=== PATIENT | male | born 1970 | race Caucasian/White ===

== ENCOUNTER 2017-03-06 19:00 | Inpatient (IN) | payer OTHER ==
[~2017-03-06] VITALS: Ht 182.9 cm; Wt 72.6 kg
--- NOTE | ~2017-03-06 | DS ---
Unit #: [id number] #: [id number] Patient: MARIAN KRUGER [id number] [facility] [address] [place] [address] [id number] I MR#: [id number] NAME: MARIAN KRUGER ROOM: P259 Age: 46 Sex: M Admission Date: 03/06/2017 : 1970 Discharge Date: 03/11/2017 Attending Physician: Clarissa Palencia M.D. Primary Care Physician: Eliel Winchester M.D. DISCHARGE SUMMARY IDENTIFYING DATA Mr. Kruger is a 46-year-old single white male, who is a resident of [place], [place], and is known to us from previous encounter, was brought to the hospital accompanied by his mother on a voluntary basis and with chief complaint of"I'm here to detox off heroin." DISCHARGE DIAGNOSES Psychiatric: Opioid dependence, moderate and acute withdrawals; methamphetamine abuse, moderate; cannabis abuse, moderate; opioid-induced mood disorder. Medical: None. Stressors: Mild psychosocial stressors. HISTORY OF PRESENT ILLNESS Please see initial psychiatric evaluation for details. PAST PSYCHIATRIC HISTORY Please see initial psychiatric evaluation for details. PAST MEDICAL HISTORY Please see initial psychiatric evaluation for details. HOSPITAL COURSE The patient was admitted to the adult chemical dependency and psychiatric unit at [facility] and was oriented to the hospital environment. Routine p.r.n. medications were initiated, and he was started on the opioid detox protocol and was closely monitored. He was taking the medications regularly and was tolerating them fairly well and was able to show a decent and therapeutic response with improvement in depression and anxiety, and was willing to continue treatment on an outpatient basis and as such, it was decided that he will be discharged home and will continue treatment on an outpatient basis. DISCHARGE MEDICATIONS None. DISCHARGE CONDITION Stable. PROGNOSIS Fair. Dictated by... Clarissa Palencia M.D. Unit #: [id number] #: [id number] Patient: MARIAN KRUGER IAA/modl TD: 03/11/2017 07:41 JOB #: [id number] DISCHARGE SUMMARY Page 1 of 1 X Clarissa Palencia MD X DISCHARGE SUMMARY
--- NOTE | ~2017-03-06 | PN ---
Unit #: [id number] #: [id number] Patient: MARIAN KRUGER [id number] [facility] [address] [place] [address] [id number] I MR#: [id number] NAME: MARIAN KRUGER ROOM: P259 Age: 46 Sex: M Admission Date: 03/06/2017 : 1970 Attending Physician: Clarissa Palencia M.D. Admitting Physician: Clarissa Palencia M.D. Primary Care Physician: Anabel Erazo PROGRESS NOTES DATE 03/09/2017 DISCUSSION Mr. Kruger is a 46-year-old white male with substance abuse and mood disorder who was seen today and chart was reviewed and case was discussed with the staff. He was seen to be anxious, withdrawn and seclusive to himself as he was laying in his bed but has been maintaining a positive attitude and states that he wants to do outpatient treatment program after completing his treatment here and that he also is interested in doing the Vivitrol injection. Meanwhile, he has been taking medications and tolerating them fairly well. MENTAL STATUS EXAMINATION Middle-aged white male who was casually dressed with fair personal hygiene and appears to be in no acute distress or discomfort. He was awake and alert with intact orientation. His mood was anxious with congruent affect. He denies any suicidal or homicidal ideation. His insight and judgement remains slightly impaired. TREATMENT PLAN 1. Will continue on his current medications and treatment protocol. Will monitor his response to the medications and make further adjustments as needed. 2. Will continue to follow up. Dictated by... Anabel Ochoa/reginald TD: 03/09/2017 21:27 JOB #: [id number] Unit #: [id number] #: [id number] Patient: MARIAN KRUGER PROGRESS NOTES Page 1 of 1 X Clarissa Palencia MD PROGRESS NOTE
--- NOTE | ~2017-03-06 | PN ---
Unit #: [id number] #: [id number] Patient: MARIAN KRUGER [id number] [facility] [address] [place] [address] [id number] I MR#: [id number] NAME: MARIAN KRUGER ROOM: P259 Age: 46 Sex: M Admission Date: 03/06/2017 : 1970 Attending Physician: Clarissa Palencia M.D. Admitting Physician: Clarissa Palencia M.D. Primary Care Physician: Anabel Erazo PROGRESS NOTES DATE OF SERVICE 03/06/2017 DISCUSSION Mr. Kruger is a 46-year-old, white male who was seen today and chart was reviewed and case was discussed with the staff. He has been anxious, withdrawn and rather seclusive to himself. Meanwhile, he has been cooperative with the treatment recommendations. He has been taking the medication and tolerating them fairly well with no reported side effects. MENTAL STATUS EXAM Middle-aged white male who was casually dressed with fair personal hygiene, appears to be in no acute distress or discomfort. He was awake and alert on interaction with intact orientation. His mood was anxious with congruent affect. He denies any suicidal or homicidal ideation. His insight and judgement remains slightly impaired. TREATMENT PLAN 1. We will continue him on his current medications and treatment protocol. We will monitor his response to the medication and make further adjustments as needed. 2. We will continue to follow up. Dictated by... Anabel Ochoa/lyly TD: 03/09/2017 03:34 JOB #: [id number] [facility] PROGRESS NOTES Page 1 of 1 X Clarissa Palencia MD PROGRESS NOTE
--- NOTE | ~2017-03-06 | PN ---
Unit #: [id number] #: [id number] Patient: MARIAN KRUGER [id number] [facility] [address] [place] [address] [id number] I MR#: [id number] NAME: MARIAN KRUGER ROOM: P259 Age: 46 Sex: M Admission Date: 03/06/2017 : 1970 Attending Physician: Clarissa Palencia M.D. Admitting Physician: Clarissa Palencia M.D. Primary Care Physician: Anabel Erazo PROGRESS NOTES DATE 03/10/2017 DISCUSSION Mr. Kruger is a 46-year-old white male who was seen today and chart was reviewed and case was discussed with the staff. He has been anxious, withdrawn and rather seclusive to himself with persistent depressive symptoms. Meanwhile, he has been cooperative with treatment recommendations and has been taking medications and tolerating them fairly well with no reported side effects. MENTAL STATUS EXAMINATION Middle-aged white male who was casually dressed with fair personal hygiene and appears to be in no acute distress or discomfort. He was awake and alert with intact orientation. His mood was anxious with congruent affect. His speech is slow and goal-directed. He denies any suicidal or homicidal ideation. His insight and judgement remains slightly impaired. TREATMENT PLAN 1. Will continue him on his current medications and treatment protocol and will monitor his response to the medications and make further adjustments as needed. 2. Will continue to follow up. Dictated by... Anabel Ochoa/reginald TD: 03/10/2017 18:53 JOB #: [id number] Unit #: [id number] #: [id number] Patient: MARIAN KRUGER PROGRESS NOTES Page 1 of 1 X Clarissa Palencia MD PROGRESS NOTE
--- NOTE | ~2017-03-06 | CO ---
Unit #: [id number] #: [id number] Patient: MARIAN MONTEZ [id number] [facility] [address] [place] [address] [id number] I MR#: [id number] NAME: MARIAN MONTEZ. ROOM: P259 Age: 46 Sex: M Admission Date: 03/06/2017 : 1970 Attending Physician: Clarissa Palencia M.D. Primary Care Physician: Eliel Winchester M.D. Consultation Date: 03/07/2017 CONSULTATION REPORT ORDERING PROVIDER Dr. Palencia. REASON FOR CONSULT Scabs all over body. SUBJECTIVE The patient does not know how multiple scabs got all over his body, but he does have them on his bilateral arms and chest and his upper legs. He does admit to methamphetamine use on a regular basis. He denies sleeping outside and denies any exposure to vermin. OBJECTIVE SKIN: The patient has multiple lesions on his arms and chest, most of them are closed wounds, but he does have a few that are open and draining serosanguineous fluid. None of them appears to be infected. VITAL SIGNS: His vital signs are stable. ASSESSMENT Multiple scabs on body. PLAN I do think that these are related fully to methamphetamine use and the patient picking while he is high. There are no scabs noted on his back or buttocks or any areas that he can reach easily. None of them appeared to be infected; however, we will use some topical mupirocin ointment and cover the open wounds. We will allow the closed wounds to heal. Dictated by... King Eubanks/candy TD: 03/07/2017 17:01 JOB #: [id number] Unit #: [id number] #: [id number] Patient: MARIAN MONTEZ CONSULTATION REPORT Page 1 of 1 X DELORES KUMAR APRN CONSULTATION REPORT
--- NOTE | ~2017-03-06 | PA ---
Unit #: [id number] #: [id number] Patient: MARIAN KRUGER [id number] [facility] [address] [place] [address] [id number] I MR#: [id number] NAME: MARIAN KRUGER ROOM: P259 Age: 46 Sex: M Admission Date: 03/06/2017 : 1970 Date of Assessment: 03/07/2017 Attending Physician: Clarissa Palencia M.D. Admitting Physician: Clarissa Palencia M.D. Primary Care Physician: Eliel Winchester M.D. PSYCHIATRIC ASSESSMENT DATE OF SERVICE 03/07/2017. IDENTIFYING DATA Mr. Kruger is a 46-year-old single white male, who is a resident of [place], [place], and is known to us from previous encounter and was brought to the hospital accompanied by his mother on a voluntary basis. CHIEF COMPLAINT "I'm here to detox from heroin." HISTORY OF PRESENT ILLNESS Mr. Kruger is a 46-year-old white male, who presents to the hospital stating that he wants to detox from opioids, particularly heroin and had a COWS of 20 indicating significant withdrawals from opioids and reports that last use yesterday morning, "I was clean for 6 months with one slip up and overdose. In the last week, I began using again. I'm using 50 to 100 dollars a day via IV. I tried to stop and not use and I did a little bit yesterday morning and withdrawals are really bad and I have joint aches and discomfort and unable to sit down, runny nose, chills, cold, hotness, and stomach cramps and I'm anxious." His mother added by stating, "he has been clean, but then this past week he has relapsed and I drug tested him last night and he was positive for heroin, benzos, amphetamines, and marijuana, but he is telling he is only using heroin. The last 24 hours, he has been trying to detox, but with his mood and bipolar he is unbearable. He is not on his medication. He needs help." The patient does report increasing depression, anxiety, agitation, irritability, impulsivity, and has history of suicide attempts in the past and reports overdose on Seroquel and Xanax about 4 years ago and reports intentional overdose of heroin in the past and one occasional dose of heroin and Xanax and as such, was seen to be a significant danger to himself and recommendation for inpatient level of care for safety and stabilization was made and the patient was stepped up to the inpatient unit. SUBSTANCE ABUSE HISTORY The patient reports extensive history of substance abuse and dependence including alcohol, cannabis, opioids, amphetamines, and benzodiazepines; currently, IV heroin has been his drug of choice. PAST PSYCHIATRIC HISTORY The patient has had a history of chemical dependency treatment at [facility], at [facility], at [facility], and [facility], and has not been able to achieve any long-term sobriety. Unit #: [id number] #: [id number] Patient: MARIAN KRUGER Review of the medical records indicate that currently he is not active in any treatment program, is not seeing a psychiatrist, and is not taking any psychotropic medications. PAST MEDICAL HISTORY Hepatitis C. ALLERGIES No known medication allergies. PERSONAL AND SOCIAL HISTORY A 46-year-old white male, who reports that he is single, unemployed, and lives at home with his mother and has fairly decent social support system. MENTAL STATUS EXAMINATION Middle-aged white male, who was casually dressed with fair personal hygiene, appears to be in no acute distress or discomfort. He was awake and alert on interaction with intact orientation to time, place, and person. His mood was anxious and depressed with a congruent affect. His speech was slow and restricted in content. His thought processes were disorganized with some looseness of associations and paranoid ideations and suicidal ideations. His insight and judgment remain significantly impaired. DIAGNOSTIC IMPRESSION Psychiatric: Opioid dependence, moderate, in acute withdrawals; methamphetamine abuse, moderate; cannabis abuse, moderate; and opioid-induced mood disorder. Medical: None. Stressors: Moderate psychosocial stressors. TREATMENT PLAN 1. The patient has presented with a history of mood disorder and substance abuse and has been decompensating and will need inpatient hospitalization for detoxification, safety, and stabilization. We will start him back on his home medications. We will adjust the medications and monitor response. 2. Supportive therapy was provided to the patient. 3. Safe, structured, and nourishing environment will be provided. ESTIMATED LENGTH OF STAY 5 to 7 days. ABILITY TO HELP SELF Limited. WILLINGNESS TO HELP SELF The patient appears to be willing to help self. STRENGTHS 1. Communicative. 2. Cooperative. PROBLEMS 1. Chronic dysphoric symptoms. 2. Chronic chemical dependency. 3. Poor social support system. DISCHARGE CRITERIA Unit #: [id number] #: [id number] Patient: MARIAN KRUGER This will be contingent upon the patient's ability to go through detox without having any significant withdrawal symptoms and his ability to stay safe to himself, particularly after discharge from the hospital. Dictated by... Clarissa Palencia M.D. LARRY/candy TD: 03/07/2017 14:00 JOB #: [id number] PSYCHIATRIC ASSESSMENT Page 1 of 1 X Clarissa Palencia MD X PSYCHIATRIC ASSESSMENT
--- NOTE | ~2017-03-06 | HP ---
Unit #: [id number] #: [id number] Patient: MARIAN MONTEZ [id number] [place] [address] [id number] MR#: [id number] NAME: MARIAN MONTEZ. ROOM: P259 Age: 46 Sex: M Admission Date: 03/06/2017 : 1970 Attending Physician: Clarissa Palencia M.D. Admitting Physician: Clarissa Palencia M.D. Primary Care Physician: Eliel Winchester M.D. HISTORY AND PHYSICAL HISTORY OF PRESENT ILLNESS The patient is a 46 year old admitted to [address] [place] [address] on 03/06/2017 for polysubstance abuse. PAST MEDICAL HISTORY 1. Polysubstance abuse. 2. Nicotine dependence. 3. Hepatitis C. PAST SURGICAL HISTORY 1. Left eye enucleation. 2. Left orchiectomy. SOCIAL HISTORY He is unemployed. He lives with his mother. He smokes one-half pack of cigarettes daily. Uses heroin and methamphetamine on a daily basis. FAMILY HISTORY Medically noncontributory. ALLERGIES No known drug allergies. CURRENT MEDICATIONS The patient is not on any home medications. REVIEW OF SYSTEMS CONSTITUTIONAL: No fever or chills. HEENT: Denies any sore throat, ear pain or runny nose. CARDIOVASCULAR: Denies chest pain, irregular heart rhythm or palpitations. CHEST: Denies shortness of breath or cough. No hemoptysis. GASTROINTESTINAL: Denies nausea, vomiting, diarrhea or chronic constipation. ENDOCRINE: Denies history of increased thirst or urination. No recent significant weight loss or gain. GENITOURINARY: Denies dysuria, frequency, or hematuria. SKIN: Denies any rashes. HEMATOLOGIC: Denies history of increased bleeding or bruising. MUSCULOSKELETAL: Denies any hot, swollen joints. No generalized muscle pain. NEUROLOGIC: Denies problems with vision or speech. No frequent, severe headaches. No numbness, tingling or weakness in any extremities. Denies Unit #: [id number] #: [id number] Patient: MARIAN MONTEZ loss of bladder or bowel control. PHYSICAL EXAMINATION GENERAL: He is awake, alert, oriented in no acute distress. VITAL SIGNS: Temperature 98.7, heart rate 103, respirations 18. Blood pressure 117/79. HEIGHT: 6 foot 0. WEIGHT: 150. SKIN: Warm and dry without rash or lesion. HEENT: Normocephalic. TMs not viewed. Oral and nasal passages clear. Conjunctivae clear. Pupils equal, round and reactive to light and accommodation. Extraocular movements intact. NECK: Supple without lymphadenopathy or thyromegaly. HEART: Regular rate and rhythm without murmur. LUNGS: Clear. ABDOMEN: Soft, nontender. : Not done. EXTREMITIES: No evidence of cyanosis, clubbing or edema. Moves all extremities without focal deficit. NEUROLOGICAL: Grossly within normal limits. Cranial Nerves: II: Visual tomas are intact. III, IV AND : Extraocular movements are intact. Pupils are equal, round and reactive to light. V: Facial sensation is grossly normal. VII: Facial movements and expression are normal. VIII: Auditory acuity grossly intact. IX, X: Uvula is midline. Phonation is normal. XI: Patient shrugs shoulders and turns head normally. XII: Tongue protrudes in the midline. Sensory and Motor Function: Sensory and motor sensation is grossly normal. Motor: moves all extremities well. Coordination: Gait is normal. Deep Tendon Reflexes: Intact. IMPRESSION 1. Psychiatric admission. 2. Polysubstance abuse. 3. Hepatitis C. RECOMMENDATIONS PSYCHIATRIC: Per psychiatrist. MEDICAL: I see no contraindications to participating in facility's activities. MEDICAL PROGNOSIS Fair. MEDICAL CONDITION Stable. Dictated by... King Eubanks Unit #: [id number] #: [id number] Patient: MARIAN MONTEZ TD: 03/08/2017 00:15 JOB #: [id number] HISTORY AND PHYSICAL Page 1 of 1 X DELORES KUMAR APRN HISTORY AND PHYSICAL
[~2017-03-06 19:00] MED LIST: ABILIFY; CLEOCIN HCL300 M1 PO; CLEOCIN PO; HEROIN; KEFLEX500 MG PO; LORTAB 7.5-5001 TAB PO; NO MEDICATIONS; PHENERGAN12.5 MG PO; SEROQUEL XR300 M1 PO; SEROQUEL300 MG PO; VISTARIL PO; VOLTAREN75 MG PO; XANAX1 MG PO; [UNRECOGNIZED DRUG - OTHER]
[2017-03-07 11:15] LABS: BASOPHIL# 0.1 X10e3 (0-0.3); BASOPHIL% 1.3 % (0-2.5); EOSINOPHIL# 0.3 X10e3 (0-0.7); EOSINOPHIL% 2.8 % (0.0-7.0); HEMATOCRIT 38.5 % (38.0-50.0); LYMPHOCYTE# 3.5 X10e3 (1.0-3.5); LYMPHOCYTE% 33.4 % (17.0-45.0); MEAN CELL VOLUME 93.9 FL (83-96); MEAN CORPUSCULAR HEMOGLOBIN 31.8 PG (28-34); MEAN CORPUSCULAR HGB CONC 33.9 g/dL (30-36); MEAN PLATELET VOLUME 9.1 FL (6.5-11.5); MONOCYTE# 1.1 X10e3 (0-1.0); MONOCYTE% 10.4 % (3.0-12.0); NEUTROPHIL# 5.4 X10e3 (1.5-7.1); NEUTROPHIL% 52.1 % (40-75); PLATELET COUNT 208 X10e3 (140-420); RED BLOOD COUNT 4.11 X10e (3.90-5.60); RED CELL DISTRIBUTION WIDTH 13.5 % (11.0-15.5); WHITE BLOOD COUNT 10.4 X10e3 (4.0-10.5)
[2017-03-07 11:36] LABS: DIFF IND NO
[2017-03-07 11:51] LABS: ALBUMIN SERUM 3.1 g/dL (3.5-5.0); BILIRUBIN,TOTAL 0.8 mg/dL (0.2-2.0); BUN/CREATININE RATIO 21.42; CALCIUM SERUM 8.5 mg/dL (8.4-10.2); CREATININE SERUM 0.7 mg/dL (0.6-1.4); GLOM FILT RATE Estimated 113.2 mL/min (>60); POTASSIUM 4.4 mmol/L (3.5-5.1); PROTEIN TOTAL SERUM 6.1 g/dL (6.0-8.3)
[2017-03-09 09:55] LABS: URINE APPEARANCE TURBID; URINE BILIRUBIN NEG (NEG); URINE BLOOD NEG (NEG); URINE COLOR DK YELLOW; URINE GLUCOSE NEG (NEG); URINE KETONE TRACE (NEG); URINE LEUKOCYTE ESTERASE NEG (NEG); URINE NITRATE NEG (NEG); URINE PROTEIN NEG (NEG); URINE SPECIFIC GRAVITY 1.025 (1.003-1.035)
[2017-03-09 10:57] LABS: AMPHETAMINE POS (NEG); BARBITURATES NEG (NEG); BENZODIAZEPINES NEG (NEG); COCAINE NEG (NEG); MARIJUANA NEG (NEG); OPIATES POS (NEG); TRICYCLIC ANTIDEPRESSANTS NEG (NEG); U METHADONE NEG (NEG)
== END 2017-03-11 13:15 | disposition home or self-care (01) | DRG 897 ==
LOC: P2L 21:15
PROVIDERS: Psychiatry & Neurology Psychiatry
PROC: HZ2ZZZZ Detoxification Services for Substance Abuse Treatment (ICD-10-PCS; principal; 2017-03-07)
DX: F11.23 Opioid dependence with withdrawal (principal); F11.24 Opioid dependence with opioid-induced mood disorder; F15.10 Other stimulant abuse, uncomplicated; F12.10 Cannabis abuse, uncomplicated; R23.4 Changes in skin texture
CPT/HCPCS: 80053; 80307; 81003; 85025; 86592

== ENCOUNTER 2017-03-31 10:46 | Inpatient (IN) | payer OTHER ==
[~2017-03-31] VITALS: Ht 182.9 cm; Wt 56.5 kg
--- NOTE | ~2017-03-31 | HP ---
Unit #: [id number] #: [id number] Patient: MARIAN KRUGER [id number] [facility]. [address] [place], [place] [address] [id number] MR#: [id number] NAME: MARIAN KRUGER. ROOM: [id number] Age: 47 Sex: M Admission Date: 03/31/2017 : 1970 Attending Physician: Nida Brunson M.D. Primary Care Physician: Eliel Winchester M.D. HISTORY AND PHYSICAL ADMISSION DIAGNOSIS Polysubstance abuse. HISTORY OF PRESENT ILLNESS Mr. Kruger is a 47-year-old gentleman who was brought to the emergency room by EMS. Accordingly to the family made a call that patient overdosed on meth. Patient admits to me that he is snorting meth crystals. His initial tox screen is positive for benzodiazepines, amphetamines and opiates. He is a very poor historian, tends to go to sleep during the conversation but denies any active problems, denies any chest pain, denies any headache, dizziness, fever, chills, nausea, vomiting, diarrhea, shortness of air, dyspnea. Apparently initial evaluation in the ER with the x-ray was suspicious for pneumonia and patient was started on the IV antibiotics and pulmonary consult was asked. This gentleman was looks like admitted by hospitalist group twice previously. Our service got called by mistake thinking that patient was Dr. Winchester's patient. However, on my interview patient states that he does not have a primary care physician and he does not know Dr. Winchester. REVIEW OF SYSTEMS 12-point review of systems on this patient is basically negative except as above. 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 PAST SURGICAL HISTORY He tells me that he had an I and D done to the right forearm secondary to an infected IV drug injected site. HOME MEDICATIONS None. ALLERGIES No known drug allergies. SOCIAL HISTORY Currently denies any alcohol, continues to smoke cigarettes and does drugs, admits methamphetamine inhalations. Unit #: [id number] #: [id number] Patient: MAZE,MARIAN E FAMILY HISTORY Significant for diabetes, CAD, lung cancer and thyroid disease. PHYSICAL EXAMINATION GENERAL: On physical exam he is a 47-year-old gentleman not in acute distress. VITAL SIGNS: BP 100/65, heart rate 71, respiration 16, temperature 98.9. HEENT: Head is atraumatic. Does have a cloudy left eye secondary to previous injury and blindness. Oropharynx clear with missing tooth. NECK: Is supple. No mass. No JVD. No bruits. CHEST: Is diminished bilaterally. CARDIOVASCULAR: S1, S2. No murmurs. ABDOMEN: Is soft, nontender, nondistended. LOWER EXTREMITIES: Without any cyanosis, clubbing or edema. NEUROLOGICAL EXAM: Patient is, again, a very poor historian. Tends to fall asleep. Easily arousable. No focal neurological deficit except of left eye blindness on a limited neurological exam. DIAGNOSTIC STUDIES IMAGING: Chest x-ray reportedly from ER physician is significant for pneumonia. LABORATORY: Chemistry significant for blood glucose of 54, BUN 25, CO2 of 21, direct bili 0.4, indirect bili 1.2, AST 77. CK at 2600. Lactic acid 1.8. Set of cardiac enzymes negative. Troponin less than 0.05. CK-MB 13.9. Hematology: White count 28,000; H and H 14 and 41.5, platelets 174. Tox screen as above. UA 2+ protein. Blood cultures pending. ASSESSMENT 1. Continues polysubstance abuse. 2. Pneumonia. 3. Leukocytosis. 4. Question of rhabdomyolysis, elevated CK total. 5. History of bipolar disorder. 6. Hypoglycemia. 7. GI and DVT prophylaxis with Protonix and Lovenox. PLAN 1. ID and Pulmonary eval. 2. Continue IV vanc and Zosyn for now. 3. GI and DVT prophylaxis as above. 4. Will transfer the care to [facility] since, again, patient had been admitted and taken care of by them multiple times in the past and patient again states that he does not have a primary care physician and does not know Dr. Winchester. 5. Patient also would benefit from psychiatry evaluation. 6. Had been started on the IV fluids. Will change it to D5 normal saline. Dictated by Anabel Mas/sandrita TD: 03/31/2017 20:26 Unit #: [id number] #: [id number] Patient: MARIAN KRUGER JOB #: [id number] HISTORY AND PHYSICAL Page 1 of 1 X Rene Stevenson MD X HISTORY AND PHYSICAL
--- NOTE | ~2017-03-31 | CR72 ---
[facility] A Service of [facility] RADIOLOGY TEXT RESULTS PATIENT: MARIAN MONTEZ LOCATION: [facility] 333-01 : [birth year] UNIT #: [id number] AGE: [address]: SYEDA BARNESUJ V SEX: M ORDER DR: [id number] [facility] [address]. [place], [place] [address] [id number] I MR#: [id number] Acc #: [id number] NAME: MARIAN MONTEZ : 1970 SEX: M STUDY DATE/TIME: 03/31/2017 13:03 UNIT: [address] ROOM: [facility] STUDY DESCRIPTION: CR Chest Single View Portable Attending Physician: Nida Brunson M.D. Ordering Physician: Gissel Thomason M.D. Primary Care Physician: Eliel Winchester M.D. MEDICAL IMAGING REPORT This report is preliminary unless electronic signature is present EXAM AP view of the chest. COMPARISON August 23, 2014 and March 05, 2012. INDICATION 47-year-old male with dyspnea since this morning. Altered mental status since this morning. Suspected drug overdose. FINDINGS There are new vague opacities in the right lung base concerning for acute aspiration and/or pneumonia. No evidence of pneumothorax or pleural effusion. Cardiomediastinal silhouette is within normal limits. Metallic BB is seen in the left lateral upper chest. There is a rounded density in the right mid chest, favoring a nipple shadow. IMPRESSION 1. New opacities in the right lung base concerning for aspiration and/or pneumonia. 2. Nodular density seen over the right lower chest favored to represent a prominent nipple shadow. One could consider placing a BB marker over the nipples followed by standard PA and lateral views of the chest for confirmation. Pulmonary nodule is not entirely excluded but is thought much less likely. Dictated by... Jeff Alvarado M.D. THIS IS AN ELECTRONICALLY VERIFIED REPORT Jeff Alvarado M.D. at 04/06/2017 2:27 PM [facility] A Service of [facility] RADIOLOGY TEXT RESULTS PATIENT: MARIAN MONTEZ LOCATION: [facility] 333-01 : 70 UNIT #: [id number] AGE: [address]: BENTLEY BARNES V SEX: M ORDER DR: REINIER/bladimir TD: 03/31/2017 23:03 JOB #: [id number] MEDICAL IMAGING REPORT Page 1 of 1 COPY
--- NOTE | ~2017-03-31 | CT57 ---
[facility] A Service of [facility] RADIOLOGY TEXT RESULTS PATIENT: MARIAN MONTEZ LOCATION: [facility] 333-01 : [birth year] UNIT #: [id number] AGE: [address]: BENTLEY BARNES V SEX: M ORDER DR: [id number] [facility] [address] [facility] [place], [place] [address] [id number] I MR#: [id number] Acc #: [id number] NAME: MARIAN MONTEZ : 1970 SEX: M STUDY DATE/TIME: 04/01/2017 10:42 UNIT: [facility] ROOM: [facility] STUDY DESCRIPTION: CT Chest Wo Cont Attending Physician: Bentley Barnes M.D. Ordering Physician: Janice Boswell M.D. Primary Care Physician: Eliel Winchester M.D. MEDICAL IMAGING REPORT This report is preliminary unless electronic signature is present EXAM CT chest without contrast 04/01/2017 1042 hours CLINICAL HISTORY 47-year-old with history of IV drug abuse. New opacities right lung base. Possible aspiration pneumonia. Evaluate for septic emboli. COMPARISON Chest x-ray 03/31/2017. TECHNIQUE Helical noncontrasted images were obtained from the lung apices through the adrenal glands. Sagittal and coronal reconstructions were performed. Total exam DLP 378 mGy-cm. This CT exam was performed with one or more of the following radiation dose reduction techniques: Automatic exposure control, adjustment of mA and/or kV according to patient size, and iterative reconstruction. FINDINGS Images through the thoracic inlet demonstrate no thyroid mass or supraclavicular adenopathy. Images through the chest without contrast demonstrate ectasia of the ascending aorta measuring up to 3.7 cm. Descending thoracic aorta is normal in caliber. There is no pathologic adenopathy. There is no pericardial or pleural fluid. The lung window images demonstrate diffuse paraseptal emphysema with larger blebs at the apices. There are multiple subpleural cystic lucencies in the anterior mid lungs bilaterally. There is mild centrilobular emphysema at the lung bases. There are diffuse, peripheral interstitial and ground-glass changes in STS. [facility] A Service of [facility] RADIOLOGY TEXT RESULTS PATIENT: MARIAN MONTEZ LOCATION: A 333-01 : [birth year] UNIT #: [id number] AGE: [address]: BENTLEY BARNES V SEX: M ORDER DR: both lungs anteriorly in the upper lobes and the immediate subpleural lungs adjacent to the areas of paraseptal emphysema and at both lung bases anteriorly and posteriorly, worse on the right than on the left. These findings are nonspecific but could represent edema, infection, or inflammatory change. These findings are not present on prior study of 03/03/2012 but are likely present on chest film 03/31/2017. They are, however, nonspecific. There are no nodules seen. There is no evidence of septic emboli. Limited views through the upper abdomen are negative. IMPRESSION 1. Noncontrasted images demonstrate no nodules or septic emboli. 2. There is no adenopathy. 3. There is fairly diffuse paraseptal emphysema with minimal centrilobular emphysema at the lung bases. The patient has peripheral subpleural multifocal interstitial changes with ground-glass changes in interstitial thickening in the upper lungs anteriorly and in both lung bases, right worse than left. These findings are nonspecific and could be related to pneumonia, aspiration, edema, or other inflammatory process. Malignancy is unlikely. 4. There is no pleural or pericardial fluid. 5. Limited views through the upper abdomen are negative. 6. There is ectasia of the ascending aorta measuring up to 3.7 cm. Dictated by... Lizzie Enrique M.D. THIS IS AN ELECTRONICALLY VERIFIED REPORT Lizzie Enrique M.D. at 04/02/2017 9:29 AM Jeremie TD: 04/01/2017 14:49 JOB #: [id number] MEDICAL IMAGING REPORT Page 1 of 1 COPY
--- NOTE | ~2017-03-31 | DS ---
Unit #: [id number] #: [id number] Patient: MARIAN MONTEZ [id number] [address] [address] [id number] I MR#: [id number] NAME: MARIAN MONTEZ ROOM: 333 Age: 47 Sex: M Admission Date: 03/31/2017 : 1970 Discharge Date: 04/01/2017 Attending Physician: Felipe Baez M.D. Primary Care Physician: Eliel Winchester M.D. DISCHARGE SUMMARY DISCHARGE DIAGNOSES 1. Aspiration pneumonia. 2. Polysubstance abuse. 3. Rhabdomyolysis. HOSPITAL COURSE The patient is a 47-year-old man, who was brought in by ambulance after family called for apparent methamphetamine overdose. He was found to have a chest x-ray suspicious for aspiration pneumonia. The patient was started on IV antibiotics overnight and now the patient wishes to leave against medical advice around 3 p.m. The patient had been informed that he has aspiration pneumonia and that he requires antibiotics to treat it. However, the patient refuses to stay and choses to leave. Dictated by... Anabel Hansen/candy TD: 04/05/2017 08:16 JOB #: [id number] DISCHARGE SUMMARY Page 1 of 1 X X DISCHARGE SUMMARY
--- NOTE | ~2017-03-31 | A ---
[facility] Nutrition Therapy DATE: 04/01/17 Patient: MARIAN MONTEZ Physician: LURDES Address: [facility] [address] Room/Bed: [address] [place] [address], Zip: [place] [address] Admit Date: 03/31/17 Date of : [birth year] Height: 6 0 Weight: 124 56.5 NUTRITIONAL ASSESSMENT: REASON: Consult, 5 pts (weight loss) screening nutrition points Admitting dx: 47 y/o male admitted with PNA, possible meth OD PMH: Bipolar disorder, ETOH abuse, L eye blind, tobacco use, R forearm I and D 2' IV drug site, polysubstance abuse Anthropometrics: Ht:72" Wt:145# UBW:175# %UBW:83% BMI:19.7 Labs: Ca++:8.2 AST:77 Meds: Protonix I/O & Bowel function: No BM noted. Skin Integrity: Lesions to the back and face Estimated Nutrition Needs: Increased needs Assessment: Chart reviwed, events noted. Pt is seen for unintentional weight loss. [employer] was able to speak to pt and family at bedside. Pt reports that he has lost 30# in ~1 month due to poor appetite (severe weight loss). Pt states that he is eating 50-75% of his meals here. RD encouraged the pt to try a supplement in addition to eating 3x daily to prevent further weight loss. Pt agreed to try Ensure TID. Pt and family reported no questions at this time. RD to follow-up per protocol. Dx: Inadequate oral intake r/t polysubstance and ETOH abuse, poor appetite AEB 30# weight loss in ~1 month. Intervention: See recs below Monitoring, Evaluation and Goals: 1. Prevent further weight loss. 2. Oral intake 50-100% of meals. 3. Tolerance and intake of nutrition supplement. 4. Promote regular BM's. Recommendations: 1. Continue pt on a regular diet. 2. Please order pt Ensure shakes TID to prevent further weight loss and increase nutrition [facility] Nutrition Therapy DATE: 04/01/17 Patient: MARIAN MONTEZ Physician: LURDES Address: [address] Room/Bed: [address] [place] [address], Zip: [place] [address] Admit Date: 03/31/17 Date of : [birth year] Height: 6 0 Weight: 124 56.5 intake. 3. Encourage PO intake. RD will follow. Moderate nutrition risk Respectfully, Aubrey Mcekon,MS, RD, LD Rosa Amado, [employer] [facility] cc: client file
--- NOTE | ~2017-03-31 | CO ---
Unit #: [id number] #: [id number] Patient: MARIAN KRUGER [id number] [address] [place], [place] [address] [id number] [place] MR#: [id number] NAME: MARIAN KRUGER ROOM: 333 Age: 47 Sex: M Admission Date: 03/31/2017 : 1970 Attending Physician: Felipe Baez M.D. Primary Care Physician: Eliel Winchester M.D. CONSULTATION REPORT REQUESTING PHYSICIAN Dr. Brunson. REASON FOR CONSULTATION Antibiotic management. HISTORY OF PRESENT ILLNESS Mr. Kruger is a 47-year-old gentleman, who was brought into the emergency room via EMS. At this time, patient says that he is unsure why he was brought into the ER. He said he was having a lot of family issues at home and then all of a sudden he came in. According to the chart, it seems that patient was called into EMS by a family member for apparent overdose on meth. Patient does admit to current IV drug use with IV methamphetamines as well as heroin. His tox screen was positive for benzodiazepines, amphetamines, and opiates. His blood cultures are currently pending. Chest x-ray was concerning for possibly aspiration versus pneumonia. Patient with white count of 28. He has been started on vancomycin, Zosyn. He denies any fevers, chills, nausea, vomiting, diarrhea, shortness of air, dyspnea or chest pain, or any new rashes or lesions. We are now being consulted for antibiotic management and all cultures are pending. Patient also has a CTA that was ordered which is also pending. REVIEW OF SYSTEMS All negative except for those stated in current HPI. PAST MEDICAL HISTORY 1. Polysubstance abuse and overdose in the past. 2. History of bipolar and suicidal attempt. 3. History of alcohol abuse as well as trauma to left orbit of his eye. PAST SURGICAL HISTORY History of I and D's on his right forearm, secondary to IV drug use. MEDICATIONS Current medications reviewed. The patient is currently on vancomycin and Zosyn. ALLERGIES No known allergies. SOCIAL HISTORY Patient denies any alcohol use. He is a current cigarette smoker and admits to methamphetamine inhalation as well as IV heroin use. He last Unit #: [id number] #: [id number] Patient: MARIAN KRUGER used four days ago. FAMILY HISTORY Noncontributory. PHYSICAL EXAMINATION GENERAL: Resting in bed, no apparent distress. Alert and oriented with no current complaint. VITAL SIGNS: Current vital signs: Temperature is 98, heart rate 59, respirations 16, blood pressure 96/55. NECK: Supple. HEAD, EARS, EYES, NOSE, THROAT: Head is normocephalic. Left eye is cloudy secondary to previous injury with blindness. CHEST: Clear to auscultation. CARDIOVASCULAR: Regular rate. ABDOMEN: Soft, nontender. Positive bowel sounds. EXTREMITIES: Lower extremities are clean, dry, and intact. DIAGNOSTIC STUDIES LABORATORY: Urinalysis with 2+ protein, negative leukocyte esterase, white blood cells 2-5. Lactic acid was 1.8 on admission. Urine drug screen positive for benzodiazepines, amphetamines, and opiates. White count 28.9, hemoglobin 14.1, platelets 174,000. IMAGING: Chest x-ray with concern for a new opacity in the right lung concerning for aspiration or pneumonia. ASSESSMENT AND PLAN A 47-year-old gentleman who is a current IV drug user comes in for apparent overdose, also with possible pneumonia and leukocytosis. At this point, will continue vancomycin and Zosyn. Will followup on blood cultures. Will check HIV status. Patient denies that he has had HIV status ever checked. Will followup on cultures. Patient is nonseptic and nontoxic appearing. Patient will be seen by Dr. Canada later on today and further recommendations to come from him. Dictated by... Gertrude Gaines APRN for Anabel Kwan TD: 04/01/2017 11:37 JOB #: [id number] CONSULTATION REPORT Page 1 of 1 X X CONSULTATION REPORT
--- NOTE | ~2017-03-31 | EKG ---
PATIENT: MARIAN MONTEZ UNIT #: [id number] Ventricular Rate: 92 BPM Atrial Rate: 92 BPM P-R Interval: 132 ms QRS Duration: 86 ms Q-T Interval: 364 ms QTC Calculation(Bezet): 450 ms P [place]: 76 degrees Calculated R [place]: -8 degrees Calculated T [place]: 24 degrees Diagnosis Line: Normal sinus rhythm Diagnosis Line: Normal ECG Diagnosis Line: No previous ECGs available Diagnosis Line: Confirmed by KAM EDUARDO MD ([id number]) on Diagnosis Line: 04/02/2017 10:50:20 AM INTERPRETING MD: ALESHA TUCKER
[2017-03-31 12:04] LABS: BASOPHIL# 0.1 X10e3 (0-0.3); BASOPHIL% 0.2 % (0-2.5); HEMATOCRIT 41.5 % (38.0-50.0); HEMOGLOBIN 14.1 gm/dL (13.0-16.0); LYMPHOCYTE# 1.8 X10e3 (1.0-3.5); LYMPHOCYTE% 6.1 % (17.0-45.0); MEAN CELL VOLUME 93.3 FL (83-96); MEAN CORPUSCULAR HEMOGLOBIN 31.7 PG (28-34); MEAN PLATELET VOLUME 8.4 FL (6.5-11.5); MONOCYTE# 2.2 X10e3 (0-1.0); MONOCYTE% 7.8 % (3.0-12.0); NEUTROPHIL# 24.8 X10e3 (1.5-7.1); NEUTROPHIL% 85.9 % (40-75); PLATELET COUNT 174 X10e3 (140-420); RED BLOOD COUNT 4.45 X10e (3.90-5.60); WHITE BLOOD COUNT 28.9 X10e3 (4.0-10.5)
[2017-03-31 12:06] LABS: DIFF IND YES
[2017-03-31 12:11] LABS: URINE SOURCE CLEAN CATCH
[2017-03-31 12:17] LABS: URINE APPEARANCE CLEAR; URINE BILIRUBIN NEG (NEG); URINE BLOOD NEG (NEG); URINE COLOR YELLOW; URINE GLUCOSE NEG (NEG); URINE KETONE NEG (NEG); URINE LEUKOCYTE ESTERASE NEG (NEG); URINE NITRATE NEG (NEG); URINE PH 5.5 (5-8); URINE PROTEIN 2+ (NEG)
[2017-03-31 12:19] LABS: URINE BACTERIA AUWI NEG (NEGATIVE); URINE SQUAMOUS EPITHELIAL CELL MOD /[HPF]
[2017-03-31 12:30] LABS: ALBUMIN SERUM 4.3 g/dL (3.5-5.0); ALKALINE PHOSPHATASE 78 U/L (32-92); ALT (SGPT) 30 U/L (10-40); AST (SGOT) 77 U/L (10-42); BILIRUBIN, DIRECT 0.4 mg/dL (0.0-0.2); BILIRUBIN,INDIRECT 1.2 mg/dL (0.0-0.9); BILIRUBIN,TOTAL 1.6 mg/dL (0.2-2.0); BLOOD UREA NITROGEN 25 mg/dL (9-23); BUN/CREATININE RATIO 19.23; CALCIUM SERUM 8.9 mg/dL (8.4-10.2); CARBON DIOXIDE 21 mmol/L (22-31); CHLORIDE 102 mmol/L (100-111); CPK (CREATINE PHOSPHOKINASE) 2678 IU/L (36-174); CREATININE SERUM 1.3 mg/dL (0.6-1.4); GLUCOSE FASTING 54 mg/dL (70-110); POTASSIUM 4.6 mmol/L (3.5-5.1); PROTEIN TOTAL SERUM 7.6 g/dL (6.0-8.3); SALICYLATE <4.0 mg/dL; SODIUM 136 mmol/L (135-145)
[2017-03-31 12:31] LABS: ACETAMINOPHEN <10 ug/mL; ALCOHOL BLOOD <5 mg/dL (0)
[2017-03-31 12:44] LABS: ANISOCYTOSIS SL; PLATELET ESTIMATE NORMAL (NORMAL)
[2017-03-31 12:48] LABS: AMPHETAMINE POS (NEG); BARBITURATES NEG (NEG); BENZODIAZEPINES POS (NEG); COCAINE NEG (NEG); MARIJUANA NEG (NEG); OPIATES POS (NEG); TRICYCLIC ANTIDEPRESSANTS NEG (NEG); U METHADONE NEG (NEG)
[2017-03-31 12:56] LABS: CULTURE INDICATED? NO
[2017-03-31 12:57] LABS: URINE TRANSITIONAL EPI CELLS FEW /[HPF]
[2017-03-31 13:37] LABS: POC - CKMB 16.5 ng/mL (0.0-7.9); POC - TROPONIN <0.05 ng/mL (<=0.05)
[2017-03-31 15:08] LABS: POC - CKMB 13.9 ng/mL (0.0-7.9); POC - TROPONIN <0.05 ng/mL (<=0.05)
[2017-04-01 06:57] LABS: BUN/CREATININE RATIO 36.66; CALCIUM SERUM 8.2 mg/dL (8.4-10.2); CREATININE SERUM 0.6 mg/dL (0.6-1.4); GLOM FILT RATE Estimated 119.8 mL/min (>60); POTASSIUM 4.1 mmol/L (3.5-5.1)
== END 2017-04-01 15:22 | disposition left against medical advice (07) | DRG 917 ==
LOC: CED 10:46 → CEDOF 17:25 → CED 18:07 → CEDOF 18:07 → C3A PCU 21:25 → CEDOF 21:25 → C3A PCU 21:25
PROVIDERS: Emergency Medicine; Physician Assistant Medical
DX: T43.621A Poisoning by amphetamines, accidental (unintentional), initial encounter (principal); J69.0 Pneumonitis due to inhalation of food and vomit; M62.82 Rhabdomyolysis; Y92.009 Unspecified place in unspecified non-institutional (private) residence as the place of occurrence of the external cause; F31.9 Bipolar disorder, unspecified; F17.210 Nicotine dependence, cigarettes, uncomplicated; E16.2 Hypoglycemia, unspecified
CPT/HCPCS: 36415; 71010; 71250; 80048; 80076; 80307; 81003; 82550; 82553; 82947; 83605; 84484; 85025; 87040; 87806; 93005; 96361; 96365; 96368; 96375; 99285; C9113; G0480; J1650; J2060; J2543; J3370

== ENCOUNTER 2017-04-01 17:34 | Inpatient (IN) | payer OTHER ==
[~2017-04-01] VITALS: Ht 193 cm; Wt 65.8 kg
--- NOTE | ~2017-04-01 | CO ---
Unit #: [id number] #: [id number] Patient: MARIAN MONTEZ [id number] [address] [address] [id number] I MR#: [id number] NAME: MARIAN MONTEZ ROOM: 224 Age: 47 Sex: M Admission Date: 04/01/2017 : 1970 Attending Physician: Jean Pierre Lundberg M.D. Primary Care Physician: Eliel Winchester M.D. Consultation Date: 04/01/2017 CONSULTATION REPORT REASON FOR CONSULT Abnormal chest x-ray. HISTORY OF PRESENT ILLNESS This is a 47-year-old male with past medical history significant for polysubstance abuse and bipolar disorder, who presented to the emergency room after family called because patient overdosed on methamphetamine. Patient is more awake this morning compared to yesterday and he stated that he had some cough but no sputum production. He denies any fever, chills or night sweats. He denied any IV drug use but, again, patient is unreliable and it is hard to verify his history. PAST MEDICAL HISTORY 1. Polysubstance abuse. 2. Bipolar disorder. PAST SURGICAL HISTORY I and D to the right forearm. HOME MEDICATION None. ALLERGY None. SOCIAL HISTORY Polysubstance abuse. No history of alcohol and he smokes 1 pack per day. FAMILY HISTORY Noncontributory. PHYSICAL EXAM GENERAL: The patient is in no acute distress. VITAL SIGNS: Blood pressure is 126/72, respiratory rate 16, O2 saturation 98%. HEENT: Atraumatic, normocephalic. PERRLA, EOMI. NECK: Supple. No JVD, no lymphadenopathy. CHEST: Fine rhonchi at the bases. HEART: S1, S2. No murmur, gallops or rubs. ABDOMEN: Soft, nontender. Bowel sound is positive. No hepatosplenomegaly. EXTREMITY: No edema or cyanosis. Unit #: [id number] #: [id number] Patient: MARIAN MONTEZ SKIN: No rashes. TRAFFIC COURT MAGISTRATE: Awake, alert, oriented x3 but he is kind of lethargic and falls asleep easily during the interview. LABS AND OTHER TESTS LABORATORY: Creatinine 1.3, bicarb 21, CK 2678. White blood count 28.9. IMAGING: Chest x-ray is reviewed and noted by me. ASSESSMENT 1. Pneumonia, likely aspiration versus MRSA. 2. IV drug abuse. 3. Chronic anemia. 4. Acute kidney injury. 5. Thrombocytopenia. 6. Bipolar disorder. 7. Rhabdomyolysis. PLAN 1. Hemodynamically stable at this point on room air. 2. Chest x-ray is noted and reviewed by me and there is concern for septic emboli so CT chest need to be done to better evaluate his lung parenchyma. 3. Will continue broad spectrum antibiotics given his possible history of IV drug abuse. 4. Bronchodilator and mucolytics. 5. IV hydration. His creatinine is better this morning. 6. DVT prophylaxis. Dictated by... Nikki Boswell M.D. EA/nikia TD: 04/02/2017 12:07 JOB #: [id number] CONSULTATION REPORT Page 1 of 1 X NIKKI ABEBE MD X CONSULTATION REPORT
--- NOTE | ~2017-04-01 | CO ---
Unit #: [id number] #: [id number] Patient: CARLOS KRUGER [id number] [facility] [address]. [place], [place] [address] [id number] I MR#: [id number] NAME: CARLOS KRUGER. ROOM: 224 Age: 47 Sex: M Admission Date: 04/01/2017 : 1970 Attending Physician: Jean Pierre Lundberg M.D. Primary Care Physician: Eliel Winchester M.D. Consultation Date: 04/02/2017 CONSULTATION REPORT REASON FOR CONSULTATION Depression, anxiety, substance abuse. HISTORY OF PRESENT ILLNESS Mr. Carlos Kruger is a 47-year-old white male, seen in room #224, bed #1, on 04/02/2017 at [facility]. The patient dressed casually. The patient's girlfriend was in the same room. The patient reported history of substance abuse and diagnosed with bipolar mood disorder, schizophrenia, was on Abilify and Seroquel. The patient's urine drug screen was positive for benzodiazepine, amphetamine, and opiates. The patient reported having trouble sleeping, anxiety, agitation, mood lability, and paranoia. Denied any suicidal or homicidal ideation. Denied any psychotic symptom. The patient's vital signs; temperature 98.9, pulse 84, respiratory rate 18, blood pressure 115/75, and oxygen saturation 100%. PAST PSYCHIATRIC HISTORY Remarkable for history of diagnosis of bipolar mood disorder. The patient last admitted in 10/2016 at [facility]. Diagnosis of opioid dependence, amphetamine abuse, cannabis abuse. MEDICAL HISTORY Remarkable for history of chest infection, chronic anemia, thrombocytopenia, rhabdomyolysis. MEDICATION HISTORY The patient is currently on Combivent, Zosyn, Humibid, Lovenox. FAMILY HISTORY AND SOCIAL HISTORY The patient has a good support system. No history of abuse. History of substance abuse as mentioned above. REVIEW OF SYSTEMS Complete review of systeme, unremarkable except as mentioned above. MENTAL STATUS EXAMINATION General appearance; the patient dressed casually. Attention span and concentration, fair. Speech, regular rate and coherent. Oriented in time, place, and person. Mood and affect, labile. Thought process, coherent. Thought content, the patient denied any thoughts of harming self or others, but guarded. Recent and remote memory, fair. Language, intact. Fund of knowledge, fair. Insight and judgment, fair to slightly impaired. 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 Secondary diagnosis: Deferred. Medical diagnosis: Please refer to H and P. Stressors: Psychosocial stressor. ASSESSMENT/PLAN 1. Supportive psychotherapy and psychoeducation provided to the patient. 2. Educated about benefits and side effects of medication and course and prognosis of illness. 3. Advised to resume the patient's Seroquel at a lower dosage 200 mg at bedtime, Requip 1 mg at bedtime, Neurontin 200 mg twice daily, Vistaril 25 mg t.i.d. We will continue to follow. Please feel free to call if any questions, telephone #[phone]. Dictated by... Anabel Reynolds/candy TD: 04/03/2017 09:27 JOB #: [id number] CONSULTATION REPORT Page 1 of 1 X Yg Martin MD X CONSULTATION REPORT
--- NOTE | ~2017-04-01 | CR63 ---
[facility] A Service of [facility] RADIOLOGY TEXT RESULTS PATIENT: MARIAN MONTEZ LOCATION: A 224-01 : [birth year] UNIT #: [id number] AGE: [address]: Jean Pierre Lundberg MD SEX: M ORDER DR: [id number] [facility] [address] [place], [place] [address] [id number] I MR#: [id number] #: [id number] NAME: MARIAN MONTEZ : 1970 SEX: M STUDY DATE/TIME: 04/02/2017 8:21 UNIT: C2A ROOM: [facility] STUDY DESCRIPTION: CR Chest 2 View Attending Physician: Jean Pierre Lundberg M.D. Ordering Physician: Jean Pierre Lundberg M.D. Primary Care Physician: Eliel Winchester M.D. MEDICAL IMAGING REPORT This report is preliminary unless electronic signature is present EXAM PA and lateral chest 04/02/2017 HISTORY 47-year-old male with shortness of breath since March 31, 2017. Methadone overdose. COMPARISON AP portable chest 03/31/2017. CT chest 04/01/2017. PA and lateral chest radiographs 08/23/2014. FINDINGS Increasing airspace disease is thought to be present within the left mid to upper lung zone and right base compared to the previous 03/31/2017 chest radiograph. Paraseptal and centrilobular emphysematous changes are demonstrated to better advantage on the previous CT chest. No pleural effusion. No pneumothorax. Normal heart size. IMPRESSION Interstitial and alveolar disease changes in both lungs, appears increased within the left mid to upper lung and right base compared to 03/31/2017. Correlate clinically for worsening pneumonia or sequelae of aspiration. Dictated by... Manasa Del Angel M.D. THIS IS AN ELECTRONICALLY VERIFIED REPORT Manasa Del Angel M.D. at 04/03/2017 1:11 PM DIANNA/dahiana TD: 04/02/2017 13:24 JOB #: [id number] [facility] A Service of [facility] RADIOLOGY TEXT RESULTS PATIENT: MARIAN MONTEZ LOCATION: [facility] 224-01 : [birth year] UNIT #: [id number] AGE: [address]: Jean Pierre Lundberg MD SEX: M ORDER DR: MEDICAL IMAGING REPORT Page 1 of 1 COPY
--- NOTE | ~2017-04-01 | DS ---
Unit #: [id number] #: [id number] Patient: MARIAN MONTEZ [id number] [facility] [address]. [place], [place] [address] [id number] I MR#: [id number] NAME: MARIAN MONTEZ. ROOM: 224 Age: 47 Sex: M Admission Date: 04/01/2017 : 1970 Discharge Date: 04/05/2017 Attending Physician: Kevin Vazquez M.D. Primary Care Physician: Eliel Winchester M.D. DISCHARGE SUMMARY DIAGNOSIS ON ADMISSION Aspiration pneumonia. DIAGNOSES ON DISCHARGE 1. Aspiration pneumonia. 2. Chronic obstructive pulmonary disease. 3. IV drug abuse. 4. Anemia. 5. Acute respiratory failure, resolved. 6. Benign prostatic hypertrophy. 7. Protein calorie malnutrition. 8. Acute rhabdomyolysis, resolved. CONSULTATION Dr. Lissy Boswell in pulmonary consultation. DIAGNOSTIC STUDIES LABORATORY: Patient's creatinine is 0.6, sodium 140, potassium 3.9. WBC 11.6, hemoglobin 11.7, platelet count 185,000. Her blood culture did not reveal any growth so far. IMAGING: CT scan of chest did not reveal any evidence of septic emboli. There were multifocal interstitial changes present on the right side. HOSPITAL COURSE A 47-year-old male was admitted to [facility] with pneumonia. Details as per admission H and P. Pneumonia: Patient was seen by Dr. Lissy Boswell in consultation, who thought that patient has aspiration pneumonia. Patient was treated with IV antibiotics. Patient was seen by infectious disease in consultation. The patient has history of polysubstance drug abuse and he was seen by psychiatry in consultation. The patient has periods of agitation on admission and he was seen by Dr. Martin in consultation. Patient responded well to treatment. Today patient is comfortable, is anxious to go home. PHYSICAL EXAMINATION VITAL SIGNS: His vital signs reveal temperature of 97.7, pulse is 51 per minute, respiratory rate is 18 per minute, blood pressure is 136/79. HEENT: Revealed no conjunctival congestion. Sclerae is nonicteric. NECK: Supple. Trachea is central. Unit #: [id number] #: [id number] Patient: MARIAN MONTEZ RESPIRATORY: Revealed decreased breath sounds bilaterally. Patient has rhonchi present on right side. CARDIOVASCULAR: Regular rate and rhythm. S1, S2. ABDOMEN: Soft, nontender. Bowel sounds are present in all four quadrants. EXTREMITIES: Reveal trace pedal edema. NEUROLOGIC: Patient is oriented to person, place, and time. Power is 5/5 bilaterally. Sensations are grossly intact. SKIN: Warm and dry. RECOMMENDATIONS ON DISCHARGE Condition stable. Activity as tolerated. MEDICATIONS Augmentin 875 mg p.o. b.i.d. Medications asd per reconciliation form. FOLLOWUP The patient is advised to follow up with primary care physician in one week and with [facility] regarding followup on drug use. Note: The patient is very anxious, is standing on the nursing station and does not want to wait until the discharge process is finished. He states that he has to go home. Therefore, patient stated that he does not want to have an inhaler as he is doing much better and is able to ambulate without getting short of breath. I called and discussed with infectious disease, Dr. Demetri Canada, who recommend the augmentin on discharge. Dictated by... Anabel Mays/henrique TD: 04/05/2017 15:21 JOB #: [id number] DISCHARGE SUMMARY Page 1 of 1 X Kevin Vazquez MD X DISCHARGE SUMMARY
--- NOTE | ~2017-04-01 | CO ---
Unit #: [id number] #: [id number] Patient: CARLOS KRUGER [id number] [address] [address] [id number] I MR#: [id number] NAME: CARLOS KRUGER. ROOM: 224 Age: 47 Sex: M Admission Date: 04/01/2017 : 1970 Attending Physician: Jean Pierre Lundberg M.D. Primary Care Physician: Eliel Winchester M.D. Consultation Date: 04/04/2017 CONSULTATION REPORT REASON FOR CONSULTATION Followup. HISTORY OF PRESENT ILLNESS Mr. Carlos Kruger is a 47-year-old white male, seen in room 224 bed 1 on 04/04/2017 at [facility]. The patient diagnosed with bipolar mood disorder, sedative hypnotic use disorder, amphetamine abuse, opioid abuse. The patient reports that medication is helping him, but still having lot of problem with the anxiety, hot and cold sweats, withdrawal symptom, sad, dysphoric, mood labile. The patient denied any thoughts of harming self or others or any psychotic symptom. The patient was lying comfortably in bed. Vital signs; temperature 98.2, pulse 62, respirations 20, blood pressure 139/95, oxygen saturations 99%. REVIEW OF SYSTEMS Complete review of systems unremarkable MENTAL STATUS EXAMINATION General appearance; the patient dressed casually, lying comfortably in bed. Somewhat anxious and nervous. Attention span and concentration fair. Speech, regular rate and coherent. Oriented in time, place, and person. Mood and affect; sad and dysphoric. Thought process, coherent. Thought content; the patient denied any thoughts of harming self or others or any hallucination, but paranoid. Recent and remote memory, fair. Language, intact. Fund of knowledge, fair. Insight and judgment, fair to slightly impaired. DIAGNOSES Opioid use disorder, severe, F11.20; amphetamine use disorder, severe, F15.20; bipolar mood disorder, recurrent, mixed depressed, F31.9. ASSESSMENT/PLAN 1. Supportive psychotherapy and psychoeducation provided to the patient. 2. Educated about benefits and side effects of medication and course and prognosis of illness. 3. Advised to continue with current medication with a plan to increase Requip to 1 mg b.i.d. and change Neurontin to 300 mg t.i.d. Continue with Seroquel 200 mg at bedtime. If needed, consider further adjustment of medication. Please feel free to call if any question telephone #[phone]. Dictated by... Yg Martin M.D. Unit #: [id number] #: [id number] Patient: CARLOS KRUGER AR/modl TD: 04/04/2017 13:45 JOB #: [id number] CONSULTATION REPORT Page 1 of 1 X Yg Martin MD X CONSULTATION REPORT
--- NOTE | ~2017-04-01 | HP ---
Unit #: [id number] #: [id number] Patient: MARIAN MONTEZ [id number] [address] [place], [place] [address] [id number] I MR#: [id number] NAME: MARIAN MONTEZ. ROOM: 94112 Age: 47 Sex: M Admission Date: 04/01/2017 : 1970 Attending Physician: Jean Pierre Lundberg M.D. Primary Care Physician: Eliel Winchester M.D. HISTORY AND PHYSICAL HISTORY OF PRESENT ILLNESS The patient is a 47-year-old man, poor historian, who had presented, brought in by ambulance after family called because the patient had overdosed on methamphetamine apparently. Patient admitted to snorting meth crystals and his urine tox was positive for benzos, amphetamines and opioids. The patient had a chest x-ray done yesterday which was concerning for aspiration pneumonia. The patient was started on IV antibiotics. However, the patient decided to leave against medical advice today. The patient now returns to the emergency room the same day he left against medical advice with similar symptoms of shortness of breath and cough. REVIEW OF SYSTEMS Positive for agitation, shortness of breath, cough, rest of 12-point review of systems negative. PAST MEDICAL HISTORY 1. Significant for polysubstance abuse. 2. Bipolar disorder. PAST SURGICAL HISTORY Previous I/D done to the right forearm secondary to IV drug injected site. HOME MEDICATIONS None. ALLERGY No known drug allergies. SOCIAL HISTORY Polysubstance abuse, denies alcohol use, smokes a pack a day daily. FAMILY HISTORY Noncontributory. PHYSICAL EXAMINATION GENERAL: Patient is awake, alert, oriented, middle-aged man. HEENT: Head is atraumatic. 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 Oropharynx is clear. NECK: Supple. Trachea midline. No JVD. CHEST: Bilateral air entry with scattered rhonchi bilaterally. CARDIAC: S1 and S2, regular rhythm. No murmurs. EXTREMITIES: No cyanosis. No peripheral edema. Unit #: [id number] #: [id number] Patient: MARIAN MONTEZ NEUROLOGIC: No acute focal deficits. ASSESSMENT AND PLAN 1. Aspiration pneumonia: Plan is to order empiric IV antibiotic Zosyn to cover broad spectrum and anaerobes. DuoNeb q.4 h. p.r.n. for shortness of breath. Supplemental oxygen. Sputum culture and Gram stain. Blood culture. Mucinex 600 mg b.i.d. 2. Substance abuse: Was seen by psychiatry today. Will order a followup psychiatry consultation. 3. Rhabdomyolysis: Plan is to order IV fluids for hydration. Dictated by Anabel Hansen TD: 04/01/2017 21:03 JOB #: [id number] HISTORY AND PHYSICAL Page 1 of 1 X X HISTORY AND PHYSICAL
--- NOTE | ~2017-04-01 | CO ---
Unit #: [id number] #: [id number] Patient: CARLOS KRUGER [id number] [facility] [address] [facility]. [place], [place] [address] [id number] I MR#: [id number] NAME: CARLOS KRUGER ROOM: 224 Age: 47 Sex: M Admission Date: 04/01/2017 : 1970 Attending Physician: Kevin Vazquez M.D. Primary Care Physician: Eliel Winchester M.D. Consultation Date: 04/05/2017 CONSULTATION REPORT REASON FOR CONSULTATION Followup. DISCUSSION Mr. Carlos Kruger is a 47-year-old white male, seen in room 224 bed 1 on 04/05/2017 at [facility]. The patient reported medication is helping him, decrease in anxiety, depression, withdrawal symptoms. The patient denied any suicidal or homicidal ideation. Denied any psychotic symptom. The patient reports that he would like to follow up in the outpatient basis after discharge. The patient's vital signs; temperature 97.7, pulse 51, respirations 18, blood pressure 136/79, and oxygen saturation 99%. REVIEW OF SYSTEMS Complete review of systems unremarkable. MENTAL STATUS EXAMINATION General appearance, the patient dressed casually in hospital attire. Attention span and concentration, fair. Speech, regular rate and coherent. Oriented in time, place, and person. Mood and affect, labile. Speech, regular rate. Thought process, coherent. Thought content, the patient denied any thoughts of harming self or others. Recent and remote memory, fair. Language, intact. Fund of knowledge, fair. Insight and judgment, fair to slightly impaired. DIAGNOSES Psychiatric: Opioid use disorder, severe, F11.20; amphetamine use disorder, severe, F15.20; bipolar mood disorder, recurrent severe, mixed, F31.9. ASSESSMENT AND PLAN 1. Supportive psychotherapy and psychoeducation provided to the patient. 2. Educated about benefits and side effects of medication and course and prognosis of illness. 3. Advised to continue with current medication. If needed, consider further adjustment of medication. Please feel free to call if any questions telephone #[phone]. Dictated by... Yg Martin M.D. AR/candy Unit #: [id number] #: [id number] Patient: CARLOS KRUGER TD: 04/05/2017 17:13 JOB #: [id number] CONSULTATION REPORT Page 1 of 1 X Yg Martin MD CONSULTATION REPORT
[2017-04-01 19:55] LABS: BUN/CREATININE RATIO 21.25; CALCIUM SERUM 8.3 mg/dL (8.4-10.2); CREATININE SERUM 0.8 mg/dL (0.6-1.4); GLOM FILT RATE Estimated 106.4 mL/min (>60); POTASSIUM 3.9 mmol/L (3.5-5.1)
[2017-04-01 20:06] LABS: BASOPHIL# 0.1 X10e3 (0-0.3); BASOPHIL% 0.4 % (0-2.5); DIFF IND YES; EOSINOPHIL# 0.1 X10e3 (0-0.7); EOSINOPHIL% 0.4 % (0.0-7.0); HEMATOCRIT 39.8 % (38.0-50.0); HEMOGLOBIN 13.3 gm/dL (13.0-16.0); LYMPHOCYTE# 2.8 X10e3 (1.0-3.5); LYMPHOCYTE% 18.2 % (17.0-45.0); MEAN CORPUSCULAR HGB CONC 33.3 g/dL (30-36); MEAN PLATELET VOLUME 8.9 FL (6.5-11.5); MONOCYTE# 1.4 X10e3 (0-1.0); MONOCYTE% 9.1 % (3.0-12.0); NEUTROPHIL# 11.2 X10e3 (1.5-7.1); NEUTROPHIL% 71.9 % (40-75); PLATELET COUNT 139 X10e3 (140-420); RED BLOOD COUNT 4.15 X10e (3.90-5.60); RED CELL DISTRIBUTION WIDTH 14.2 % (11.0-15.5); WHITE BLOOD COUNT 15.5 X10e3 (4.0-10.5)
[2017-04-01 20:26] LABS: PLATELET ESTIMATE NORMAL (NORMAL)
[2017-04-01 20:27] LABS: ANISOCYTOSIS SL; POIKILOCYTOSIS SL
[2017-04-02 07:32] LABS: BASOPHIL% 0.5 % (0-2.5); DIFF IND NO; EOSINOPHIL# 0.1 X10e3 (0-0.7); EOSINOPHIL% 0.8 % (0.0-7.0); HEMATOCRIT 33.3 % (38.0-50.0); HEMOGLOBIN 11.4 gm/dL (13.0-16.0); MEAN CELL VOLUME 94.2 FL (83-96); MEAN CORPUSCULAR HEMOGLOBIN 32.4 PG (28-34); MEAN CORPUSCULAR HGB CONC 34.4 g/dL (30-36); MEAN PLATELET VOLUME 8.8 FL (6.5-11.5); MONOCYTE# 1.2 X10e3 (0-1.0); MONOCYTE% 11.1 % (3.0-12.0); NEUTROPHIL# 7.4 X10e3 (1.5-7.1); NEUTROPHIL% 68.6 % (40-75); PLATELET COUNT 109 X10e3 (140-420); RED BLOOD COUNT 3.53 X10e (3.90-5.60); RED CELL DISTRIBUTION WIDTH 14.4 % (11.0-15.5); WHITE BLOOD COUNT 10.7 X10e3 (4.0-10.5)
[2017-04-02 08:05] LABS: CALCIUM SERUM 7.9 mg/dL (8.4-10.2); CREATININE SERUM 0.8 mg/dL (0.6-1.4); GLOM FILT RATE Estimated 106.4 mL/min (>60); POTASSIUM 3.7 mmol/L (3.5-5.1)
[2017-04-04 06:27] LABS: BUN/CREATININE RATIO 16.25; CALCIUM SERUM 8.3 mg/dL (8.4-10.2); CREATININE SERUM 0.8 mg/dL (0.6-1.4); GLOM FILT RATE Estimated 106.4 mL/min (>60); POTASSIUM 4.2 mmol/L (3.5-5.1)
[2017-04-05 06:14] LABS: HEMATOCRIT 35.3 % (38.0-50.0); HEMOGLOBIN 11.7 gm/dL (13.0-16.0); MEAN CELL VOLUME 94.2 FL (83-96); MEAN CORPUSCULAR HEMOGLOBIN 31.4 PG (28-34); MEAN CORPUSCULAR HGB CONC 33.3 g/dL (30-36); MEAN PLATELET VOLUME 9.2 FL (6.5-11.5); RED BLOOD COUNT 3.74 X10e (3.90-5.60); WHITE BLOOD COUNT 11.6 X10e3 (4.0-10.5)
[2017-04-05 06:43] LABS: BUN/CREATININE RATIO 21.66; CALCIUM SERUM 8.3 mg/dL (8.4-10.2); CREATININE SERUM 0.6 mg/dL (0.6-1.4); GLOM FILT RATE Estimated 119.8 mL/min (>60); POTASSIUM 3.9 mmol/L (3.5-5.1)
== END 2017-04-05 14:25 | disposition home or self-care (01) | DRG 917 ==
LOC: CED 17:34 → CEDOF 20:21 → CED 20:21 → CEDOF 22:11 → C2A 22:11
PROVIDERS: Emergency Medicine; Internal Medicine
DX: T43.621A Poisoning by amphetamines, accidental (unintentional), initial encounter (principal); J69.0 Pneumonitis due to inhalation of food and vomit; J96.00 Acute respiratory failure, unspecified whether with hypoxia or hypercapnia; F15.20 Other stimulant dependence, uncomplicated; M62.82 Rhabdomyolysis; E46 Unspecified protein-calorie malnutrition; Z68.1 Body mass index [BMI] 19.9 or less, adult; F11.20 Opioid dependence, uncomplicated; F13.20 Sedative, hypnotic or anxiolytic dependence, uncomplicated; N17.9 Acute kidney failure, unspecified; Y92.009 Unspecified place in unspecified non-institutional (private) residence as the place of occurrence of the external cause; J44.9 Chronic obstructive pulmonary disease, unspecified; D64.9 Anemia, unspecified; N40.0 Benign prostatic hyperplasia without lower urinary tract symptoms; F31.9 Bipolar disorder, unspecified; D69.6 Thrombocytopenia, unspecified
CPT/HCPCS: 71020; 80048; 80202; 82308; 82550; 85025; 85027; 87040; 94760; 99285; J1650; J2543; J2920; J3370